=== PATIENT | female | born 1955 | race Caucasian/White ===

== ENCOUNTER → 2020-06-01 | Outpatient (CLI) | payer OTHER ==
[~2020-06-01] MED LIST: GLIPIZIDE ER2.5 MG PO; LISINOPRIL10 MG PO; METFORMIN HCL500 MG PO; NORCO 5-325 TA1 EACH PO; ONDANSETRON HCL4 M2 PO; PROBIOTIC1 EAC1 PO; ZYRTEC10 M2 PO
== END ==
LOC: M.LAB 16:11
PROVIDERS: ATTEND Internal Medicine Gastroenterology
DX: Z01.812 Encounter for preprocedural laboratory examination (principal); Z11.59 Encounter for screening for other viral diseases; R19.4 Change in bowel habit; K62.89 Other specified diseases of anus and rectum; R63.4 Abnormal weight loss